=== PATIENT | female | born 1955 | race Caucasian/White ===

== ENCOUNTER 2019-01-03 01:27 | Emergency (ER) | payer OTHER ==
[~2019-01-03] VITALS: Ht 165.1 cm; Wt 89.4 kg
[2019-01-03] MEDS ORDERED: COREG6.25 MG PO (01:48)
[2019-01-03] MEDS ORDERED: COLACE100 MG PO (01:48)
[2019-01-03] MEDS ORDERED: PEPCID20 MG PO (01:49)
[2019-01-03] MEDS ORDERED: FLONASE 0.05%50 MCG NASAL (01:49)
[2019-01-03] MEDS ORDERED: NEURONTIN250 MG/5 M PO (01:50)
[2019-01-03] MEDS ORDERED: REGLAN 10 MG TA10 MG PO (01:51)
[2019-01-03] MEDS ORDERED: NORVASC5 MG PO (01:52)
[2019-01-03] MEDS ORDERED: ASPIR 8181 MG PO (01:52)
[2019-01-03] MEDS ORDERED: MUCINEX D ER 61 EACH PO (01:52)
[2019-01-03] MEDS ORDERED: ONDANSETRON HCL4 M2 PO (01:53)
[2019-01-03] MEDS ORDERED: ATORVASTATIN CA40 MG PO (01:53)
[2019-01-03] MEDS ORDERED: RISPERDAL0.5 MG PO (01:54)
[2019-01-03] MEDS ORDERED: SERTRALINE HCL50 MG PO (01:54)
[2019-01-03] MEDS ORDERED: DEMADEX20 MG PO (01:55)
[2019-01-03] MEDS ORDERED: NOVOLOG100 UNIT/1 SUBQ (01:56)
[2019-01-03] MEDS ORDERED: ROBAXIN500 MG PO (02:35)
[2019-01-03] MEDS ORDERED: TRAMADOL 50 MG50 MG PO (02:35)
[2019-01-03] MEDS ORDERED: NAPROXEN375 MG PO (02:35)
[2019-01-03 04:40] VITALS: BP 145/53
== END 2019-01-03 04:40 | disposition home or self-care (01) ==
LOC: ER 01:27
DX: G44.209 Tension-type headache, unspecified, not intractable (principal); I10 Essential (primary) hypertension; M43.6 Torticollis; R00.1 Bradycardia, unspecified; J44.9 Chronic obstructive pulmonary disease, unspecified; E78.5 Hyperlipidemia, unspecified; K21.9 Gastro-esophageal reflux disease without esophagitis; E11.43 Type 2 diabetes mellitus with diabetic autonomic (poly)neuropathy; Z88.5 Allergy status to narcotic agent; Z88.8 Allergy status to other drugs, medicaments and biological substances; Z79.4 Long term (current) use of insulin

== ENCOUNTER 2020-06-29 03:29 | Emergency (ER) | payer OTHER ==
[~2020-06-29] VITALS: Ht 162.6 cm; Wt 82.1 kg
[~2020-06-29 03:29] MED LIST: ASPIR 8181 MG PO; ATORVASTATIN CA40 MG PO; COLACE100 MG PO; COREG6.25 MG PO; DEMADEX20 MG PO; FLONASE 0.05%50 MCG NASAL; MUCINEX D ER 61 EACH PO; NAPROXEN375 MG PO; NEURONTIN250 MG/5 M PO; NORVASC5 MG PO; NOVOLOG100 UNIT/1 SUBQ; ONDANSETRON HCL4 M2 PO; PEPCID20 MG PO; REGLAN 10 MG TA10 MG PO; RISPERDAL0.5 MG PO; ROBAXIN500 MG PO; SERTRALINE HCL50 MG PO; TRAMADOL 50 MG50 MG PO
[2020-06-29 04:07] LABS: ANION GAP 6 mmol/L (7-16); BUN 28 mg/dL (7-18); CALCIUM 8.9 mg/dL (8.5-10.1); CHLORIDE 106 mmol/L (98-107); CO2 32 mmol/L (21-32); CREATININE 2.4 mg/dL (0.6-1.0); GLUCOSE 146 mg/dL (74-106); POTASSIUM 4.1 mmol/L (3.5-5.1); SODIUM 144 mmol/L (136-145)
[2020-06-29 04:18] LABS: ALBUMIN 3.3 g/dL (3.4-5.0); LIPASE 60 U/L (73-393); SGOT 19 U/L (15-37); SGPT 19 U/L (30-65); TOTAL BILIRUBIN 0.2 mg/dL (0.2-1.0); TOTAL PROTEIN 7.3 g/dL (6.4-8.2); TROPONIN-I <0.06 ng/mL (<0.06)
[2020-06-29 04:22] LABS: ABSOLUTE NEUTROPHILS 3.9 thou/uL (1.4-8.2); BASOPHILS 0.8 % (0.0-2.0); EOSINOPHILS 5.5 % (0.0-3.0); HEMOGLOBIN 10.3 gm/dL (12.0-15.0); LYMPHOCYTES 18.1 % (24.0-44.0); MCH 30.8 pg (26.0-34.0); MCHC 34.3 g/dL (28.0-37.0); MCV 89.6 fL (80.0-100.0); MONOCYTES 7.5 % (1.0-8.0); PLATELET COUNT 147 thou/uL (150-400); POLYS 68.1 % (36.0-66.0); RBC 3.35 mil/uL (4.20-5.00); WBC 5.7 thou/uL (4.0-11.0)
[2020-06-29] MEDS ORDERED: ZOFRAN ODT4 MG PO (06:32)
[2020-06-29] MEDS ORDERED: PEPCID20 MG PO (06:32)
[2020-06-29 07:48] VITALS: BP 182/64
--- NOTE | 2020-06-30 16:01 | EKG ---
[facility] [place] [address] ELECTROCARDIOGRAM REPORT Name: NIVIA GREENE Room #: DEP [facility]#: [id number] Admission: 06/29/20 Attend Phys: Discharge: 06/29/20 Date of : 53 Report #: [id number] THIS REPORT FOR: cc: Hugh Pruett MD, Shyam MD Couchonnal, Luis F. 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
== END 2020-06-29 07:49 | disposition home or self-care (01) ==
LOC: ER 03:29
PROVIDERS: Emergency Medicine
DX: R10.13 Epigastric pain (principal); R06.89 Other abnormalities of breathing; J44.9 Chronic obstructive pulmonary disease, unspecified; E78.5 Hyperlipidemia, unspecified; K21.9 Gastro-esophageal reflux disease without esophagitis; E11.42 Type 2 diabetes mellitus with diabetic polyneuropathy; I50.9 Heart failure, unspecified; Z79.899 Other long term (current) drug therapy; Z79.82 Long term (current) use of aspirin; Z98.61 Coronary angioplasty status; Z79.4 Long term (current) use of insulin; Z88.5 Allergy status to narcotic agent; Z88.8 Allergy status to other drugs, medicaments and biological substances; Z88.1 Allergy status to other antibiotic agents